=== PATIENT | female | born 1995 | race Two or more races ===

== ENCOUNTER → 2016-11-17 | Outpatient (REF) | payer OTHER | LOC: M SFHCLERA 17:56 | PROVIDERS: ATTEND Nurse Practitioner Family | DX: R30.0 Dysuria (principal) ==

== ENCOUNTER → 2017-07-12 | Outpatient (REF) | payer OTHER ==
[2017-07-12 22:32] LABS: CHLAMYDIA DNA AMPLIFICATION NEGATIVE (NEGATIVE); GC DNA AMPLIFICATION NEGATIVE (NEGATIVE)
== END ==
LOC: M SFHCLERA 14:02
DX: R11.10 Vomiting, unspecified (principal)
CPT/HCPCS: 87086

== ENCOUNTER 2017-08-26 13:25 | Emergency (ER) | payer OTHER | END 2017-08-26 15:34 | disposition home or self-care (01) | LOC: M ED 13:25 | DX: F41.9 Anxiety disorder, unspecified (principal); Z88.0 Allergy status to penicillin; Z79.3 Long term (current) use of hormonal contraceptives | CPT/HCPCS: 99284 ==